=== PATIENT | male | born 1940 | race Caucasian/White ===

== ENCOUNTER → 2021-07-02 11:20 | Outpatient (CLI) | payer MEDICARE, SELFPAY ==
--- NOTE | ~2021-07-02 | XR_ITS ---
EXAMINATION: XR lumbar spine 2-3V EXAM DATE: 07/02/2021 11:47 INDICATION: M54.5 - Low back pain/worsening/no trauma. TECHNIQUE: Lumber spine frontal, lateral, lateral L5-S1 projections for interpretation. There is no prior study for comparison. FINDINGS: Moderate to severe lumbar disc disease. Mild upper lumbar levoscoliosis. Small to moderate- sized endplate osteophytes. Moderate aortic arteriosclerosis. Moderate lumbar facet arthropathy. The vertebral bodies are aligned in the AP dimension. Vertebral body heights are maintained. Sacrum, sacr oiliac joints, sacral arcuate lines are intact. Paraspinal soft tissue is unremarkable. IMPRESSION: 1. Moderate to severe lumbar disc disease. 2. Moderate arthropathy. Reviewed, dictated and finalized at location B.
--- NOTE | ~2021-07-02 | XR_ITS ---
EXAMINATION: XR hip BI wo pelvis EXAM DATE: 07/02/2021 11:49 INDICATION: M25.551Pain in right hip/states pain in both hips x3 months. TECHNIQUE: Each hip imaged independently (separate right and also left hip) 'frog leg' and frontal p rojections for interpretation. Frontal projection pelvis. There is no prior study for comparison. FINDINGS: No radiographic evidence of hip avascular necrosis. There is moderate symmetric bilateral hip primary osteoarthritis. There are no acute hip or pelvic fractures or dislocations identified. T here is no subcutaneous gas. The soft tissue is unremarkable. There are no radiopaque foreign bodi es. Scattered femoral arterial sclerosis. Calcifications in the pelvis are believed to be phlebolith s. Moderate to severe lower lumbar disc disease. IMPRESSION: Moderate bilateral hip osteoarthritis. Reviewed, dictated and finalized at location B.
== END ==
PROVIDERS: PCP Nurse Practitioner Family; Visit Provider Nurse Practitioner Family
DX: M16.0 Bilateral primary osteoarthritis of hip (principal); M51.36 Other intervertebral disc degeneration, lumbar region
CPT/HCPCS: 72100; 73521

== ENCOUNTER → 2022-12-30 08:33 | Outpatient (CLI) | payer MEDICARE, SELFPAY ==
--- NOTE | ~2022-12-30 | XR_ITS ---
XR lumbar spine min 4V DATE: 12/30/2022 09:04 INDICATION: Lumbago, sciatica TECHNIQUE: AP, lateral, bilateral oblique views, coned lateral lumbosacral view COMPARISON: 07/02/2021 lumbar spine FINDINGS: Normal alignment of the lumbar spine. There is mild rotatory lumbar levoscoliosis. There is moderately severe degenerative disc disease at L1-2 and L3-4 and severe degenerative disc di sease at L2-3, L4-5 and L5-S1. No fracture or bone destruction is evident. The lumbar pedicles appear intact. No spondylolisthesis. The sacroiliac joints are normally aligned. There is extensive calcification of the abdominal aorta and common iliac arteries, without evidence o f aneurysm. Status post cholecystectomy IMPRESSION: Mild rotatory levoscoliosis Moderately severe to severe degenerative disease throughout the lumbar spine Reviewed, dictated and finalized at location A.
--- NOTE | ~2022-12-30 | XR_ITS ---
EXAMINATION: XR hip BI 2V w AP pelvis DATE: 12/30/2022 09:05 INDICATION: Right hip pain. TECHNIQUE: An anteroposterior view of the pelvis on 2 radiographs and 2 views of each hip were obtain ed. COMPARISON: Pelvis and hip radiographs 07/02/2021 FINDINGS: Bone alignment is normal. No fracture. There is severe lumbar spondylosis. There is mild os teoarthrosis of the hips. IMPRESSION: 1. Mild osteoarthritis of the hips. Reviewed, dictated and finalized at location A.
== END ==
PROVIDERS: PCP Nurse Practitioner Family; Visit Provider Nurse Practitioner Family
DX: M54.40 Lumbago with sciatica, unspecified side (principal); M51.36 Other intervertebral disc degeneration, lumbar region; M41.86 Other forms of scoliosis, lumbar region; M16.0 Bilateral primary osteoarthritis of hip
CPT/HCPCS: 72110; 73521

== ENCOUNTER 2023-02-03 08:15 | Outpatient (RCR) | payer MEDICARE, SELFPAY ==
--- NOTE | 2023-01-07 09:04 | PTOPEVAL1 ---
Assessment and note entered by Claire Mensees, PT Evaluation Information Assessment Status Evaluation Diagnosis low back pain, R and L hip pain Onset about 1 yr ago Subjective Information gradual increase in back pain, no trauma or injury recent xrays of hips and back- per pt: hips mild to moderate arthritis and back severe arthritis; do not use assistive device; decrease activity level due to pain--standing, walking, home tasks; have not had PT for his back before; Reported Pain Level Pain Score Self Report Additional Pain Score Comments pain range 4-10/10, excruciating pain; into R and L to lateral hips and thighs to knees- intermittent; R and L foot tingling--neuropathy since back surgery; increase pain with walking & standing 5 min, sleeping depends upon activity level decrease pain - take ibuprofen, lie down, heat does not really make difference; have not used muscle creams; just bought back brace- only used once; discussed with pt balance of activity/rest, increase activity as tolerated; Assessment PT Clinical Summary Jareth has the diagnosis of low back pain, radicular into R and L LE to knees. Oswestry score of 54% limitation in activity level. He reports decreased walking, standing and activity level due to pain. With the evaluation, he has poor standing position of his trunk with R forward rotation of shoulder and trunk; decreased walking distance with 2 minute walking test of 300' and stopped due to pain increase; decreased strength of trunk and hips, with decreased flexibility of both hamstrings. Skilled PT services are indicated for modalities to decrease pain; therapeutic exercises to increase trunk and hip strength, and education for home exercises, posture and pain control. Plan of Care Interventions Electrical Stimulation,Hot Pack/Cold Pack,Manual Therapy,Mechanical Traction,Patient/Caregiver Education,Therapeutic Activities,Therapeutic Exercise,Ultrasound,Other Other Interventions taping PT Services Indicated Yes Treatment Frequency and
--- NOTE | 2023-02-11 13:02 | PTOPDC ---
Assessment and note entered by Claire Meneses, PT Evaluation Information Assessment Status Discharge - Pt Not Present Diagnosis low back pain, R and L hip pain Onset about 1 yr ago Assessment PT Clinical Summary Mr. Fernandes has received 5 PT sessions. He called and canceled remaining appointments, stated he would continue with his exercises and go to the fitness center. The goals were not assessed. Discharge PT per pt request. Plan of Care PT Services Indicated Yes
== END 2023-02-12 09:13 | disposition home or self-care (01) ==
LOC: ANHPT 08:15
PROVIDERS: PCP Nurse Practitioner Family; Visit Provider Nurse Practitioner Family
DX: M54.40 Lumbago with sciatica, unspecified side (principal); M25.551 Pain in right hip; M25.552 Pain in left hip
CPT/HCPCS: 97014; 97110; 97112; 97140; 97161; 97530; G0283

== ENCOUNTER → 2023-02-22 10:36 | Outpatient (CLI) | payer MEDICARE, SELFPAY ==
--- NOTE | ~2023-02-22 | XR_ITS ---
XR chest 2V 02/22/2023 10:58 Indication: Acute bronchitis. Procedure: 2 view chest Comparison: No prior studies for comparison. Findings: Left lower lobe airspace disease. Small left effusion. Borderline heart size. Right lung cl ear. No edema or pneumothorax. No acute osseous abnormality. Impression: 1: Left basilar airspace disease may represent atelectasis or pneumonia. 2: Small left pleural effusion. Reviewed, dictated and finalized at location [] Impression: 1: Left basilar airspace disease may represent atelectasis or pneumonia. 2: Small left pleural effusion.
== END ==
PROVIDERS: PCP Family Medicine; Visit Provider Family Medicine
DX: J20.9 Acute bronchitis, unspecified (principal); J90 Pleural effusion, not elsewhere classified
CPT/HCPCS: 71046

== ENCOUNTER 2023-06-15 08:51 | Outpatient (CLI) | payer MEDICARE, SELFPAY | END 2023-06-15 08:52 | disposition home or self-care (01) | LOC: ANHAUDASC 08:51 | PROVIDERS: PCP Nurse Practitioner Family; Visit Provider Otolaryngology | DX: H93.19 Tinnitus, unspecified ear (principal); H90.3 Sensorineural hearing loss, bilateral | CPT/HCPCS: 92557; 92567 ==

== ENCOUNTER → 2023-09-07 09:16 | Outpatient (CLI) | payer MEDICARE, SELFPAY ==
--- NOTE | ~2023-09-07 | MR_ITS ---
MRI of the lumbar spine Clinical History: Back pain Technique: Axial T2-weighted images, and sagittal T1-weighted, T2-weighted, and T2 fat-sat images wer e acquired. Findings: There is no fracture or subluxation of the lumbar spine. Vertebral bodies maintain normal h eight and line. There are areas of reactive marrow signal changes due to degenerative disc disease. N o suspicious bone marrow signal abnormality seen. At L1-L2, there is advanced degenerative disc narrowing. Disc bulge and moderate facet arthropathy re sults in moderate to advanced central canal stenosis. There is severe right neural foraminal narrowin g, and moderate to advanced left neural foraminal narrowing. At L2-L3, there is severe degenerative disc narrowing. Disc bulge and severe facet arthropathy contri bute to moderate central canal stenosis/thecal sac compression. There is moderate to severe right linden ral foraminal narrowing, and moderate left neural foraminal narrowing. At L3-L4, there is advanced degenerative disc narrowing. Disc bulge and advanced facet arthropathy re sult in moderate central canal stenosis/thecal sac compression. There is moderate to severe bilateral neural foraminal narrowing, left worse than right. At L4-L5, there is severe degenerative disc narrowing. Diffuse disc bulge and advanced facet arthropa thy are present, with left lateral recess stenosis. There is severe left neural foraminal, right, and moderate right neural foraminal conference. At L5-S1, there is advanced degenerative disc narrowing, with diffuse disc bulge. No laurence central ca nal stenosis. There is moderate bilateral neural foraminal narrowing, right worse than left. Paravertebral soft tissues are unremarkable. Impression: Severe degenerative spondylosis, as detailed above. Reviewed, dictated and finalized at location M. PREVENTION LEAD Impression: Severe degenerative spondylosis, as detailed above.
== END ==
PROVIDERS: PCP Nurse Practitioner Family; Visit Provider Anesthesiology Pain Medicine
DX: M47.896 Other spondylosis, lumbar region (principal)
CPT/HCPCS: 72148

== ENCOUNTER 2023-10-12 06:51 | Day surgery (SDC) | payer MEDICARE, SELFPAY ==
[2023-09-13 09:25] VITALS: BMI 24.8
--- NOTE | ~2023-10-12 | XR_ITS ---
EXAMINATION: XR fluoroscopy no charge DATE: 10/12/2023 10:55 INDICATION: Bilateral L3-L5 nerve blocks TECHNIQUE: 12 fluoroscopic images of the lower lumbar spine were obtained during procedure performed by Dr. Schilling. Radiologist was not present for the imaging or procedure. The amount of fluoroscopy time used during this procedure was 0.3 minutes. COMPARISON: None. FINDINGS: Images demonstrate needles advanced to the region of the junction of the superior facet and transvers e processes of L4-S1 on both the left and right. IMPRESSION: 1. Fluoroscopy utilized during pain management procedure the lower lumbar spine. See procedure note f or further detail. Reviewed, dictated and finalized at location A. EMS ANALYST DEVELOPER IMPRESSION: 1. Fluoroscopy utilized during pain management procedure the lower lumbar spine . See procedure note for further detail.
--- NOTE | 2023-10-12 08:08 | WPDHPUPDATE1 ---
History and Physical Update Update Date/Time: 10/12/23 08:08 History and Physical has been reviewed, including an updated exam of the patient. There are NO changes in the patient's condition. Risks, benefits, and alternatives have been discussed and questions answered. Patient agrees to proceed with procedure.
--- NOTE | 2023-10-12 08:09 | W.PM.PROC2 ---
Procedure Note - Detailed Date of Procedure 10/12/23 Pre-op Diagnosis Lumbosacral spondylosis, Chronic low back pain Post-op Diagnosis Same Procedure Performed Diagnostic [Right Left] Lumbar Medial Branch[/Dorsal Ramus] Blocks at [L3, L4, L5] Treating the Ipsilateral [L4-5, L5-S1] Facet Joints Under Fluoroscopic Guidance and with Contrast Control. ([2] levels blocked). Surgeon Maxx Schilling MD Anesthesia Local Description of Procedure INFORMED CONSENT: Risks, benefits and alternatives to the procedure were discussed in detail with the patient who expressed explicit understanding and consent to proceed. Patient was informed verbally and in written form regarding the risks associated with the procedure including the low risk of serious infection, bleeding/bruising, allergic reaction, nerve or organ injury, paralysis, procedural site pain or discomfort, worsening pain and/or mobility, failure to treat and/or disfigurement. The patient expressed explicit understanding and consent to proceed. All materials required for the procedure were available prior to procedure start. Site and side were marked prior to procedure and confirmed in the presence of the patient. PROCEDURE IN DETAIL: The patient was brought to the procedural suite and placed in the prone position. Patient was made comfortable with use of pillows under the head/chest, hips and ankles. Skin overlying the injection site on the affected side(s) was prepared broadly with ChloraPrep applicator and draped in a sterile manner. Aseptic technique was used throughout. The endplates of the vertebral bodies at the site(s) of interest were aligned in the AP view. Ipsilateral oblique angulation was utilized to optimize visualization of the intersection between the superior articulating process and transverse process at each target site. Local anesthesia was established by infiltration with approximately 5 mL of 1% lidocaine via a 1-1/2 inch 27-gauge needle. A 25-gauge 3.5 inch Quincke spinal needle was advanced until the needle tip contacted periosteum at the target site, right L3. Lateral view was utilized to confirm the appropriate placement of the needle tip just anterior to the facet line and superior to the pedicle. In the Lateral view, 0.25 mL of Omnipaque 300 contrast medium was injected after negative aspiration for CSF, blood or other bodily fluid, showing appropriate extra-articular spread of contrast without evidence of intravascular, foraminal or intrathecal placement. A 0.5 mL solution of 0.5% PF bupivacaine was injected after negative repeat aspiration. Appropriate spread of the injectate was confirmed with washout of previously injected contrast. No parasthesias were elicited. Needle was removed completely intact without difficulty. The same exact procedure was repeated for all remaining levels on the ipsilateral side, right L4, L5 medial branches/dorsal ramus, modified as necessary to accommodate for the new target location with identical findings and results and no evidence of complication. The same exact procedure was repeated for all remaining levels on the contralateral side, left L3, L4, L5 medial branches/dorsal ramus, modified as necessary to accommodate for the new target location with identical findings and results and no evidence of complication. Images were saved and documented in the patient chart. Patient's skin was cleaned and sterile bandage applied. The patient tolerated the procedure well. The patient was transported to the recovery area in stable condition where they were observed for an appropriate amount of time prior to discharge, without evidence of complication. Patient was instructed on the appropriate completion of a pain diary over the next 12-24 hours. The patient was instructed to avoid excessive activity for the next 48 hours, including climbing and frequent use of stairs. Showers only for 48 hours. They were instructed not to drive or operate heavy machinery for 24 hour
[2023-10-12 08:12] VITALS: BP 145/88; PULSE 82; RESP 20; TEMP 36.9; O2SAT 100
[2023-10-12 08:51] VITALS: BP 179/100; PULSE 83; RESP 13; O2SAT 98
[2023-10-12] MEDS: LIDOCAINE HCL 1% PF INJ 5 ML VIAL XX (08:55)
[2023-10-12 08:56] VITALS: BP 158/92; PULSE 75; RESP 14; O2SAT 98
[2023-10-12] MEDS: BUPivacaine HCL 0.5% 10 ML AMP INFILTRATE (08:56)
[2023-10-12 09:05] VITALS: BP 135/81; PULSE 82; RESP 16; O2SAT 100
== END 2023-10-12 09:15 | disposition home or self-care (01) ==
PROVIDERS: PCP Nurse Practitioner Family; Visit Provider Anesthesiology Pain Medicine
PROC: (CPT 64493; principal; 2023-10-12 08:45)
DX: M47.817 Spondylosis without myelopathy or radiculopathy, lumbosacral region (principal); M54.59 Other low back pain
CPT/HCPCS: 64493 ×2; 64494 ×2; 99199

== ENCOUNTER 2023-11-09 05:53 | Day surgery (SDC) | payer MEDICARE, SELFPAY ==
[2023-10-29 10:22] VITALS: BMI 25.4
--- NOTE | ~2023-11-09 | XR_ITS ---
EXAMINATION: XR fluoroscopy no charge DATE: 11/09/2023 13:12 INDICATION: Pain management procedure the lumbar spine TECHNIQUE: 11 fluoroscopic images of the lumbar spine were obtained during procedure performed by Dr. Schilling. Radiologist was not present for the imaging or procedure. The amount of fluoroscopy time used during this procedure was 2.3 minutes. COMPARISON: None. FINDINGS/IMPRESSION: Images demonstrate spinal needles with distal tips projecting along the superolateral margin of the j unction of the pedicles and transverse processes bilaterally at the level of the L3, L4 and L5 dorsal rami. See procedure note for further detail. Reviewed, dictated and finalized at location A. R WORKER
[2023-11-09 06:51] VITALS: BP 144/93; PULSE 63; RESP 14; TEMP 36.8; O2SAT 100
--- NOTE | 2023-11-09 07:10 | WPDHPUPDATE1 ---
History and Physical Update Update Date/Time: 11/09/23 07:10 History and Physical has been reviewed, including an updated exam of the patient. There are NO changes in the patient's condition. Risks, benefits, and alternatives have been discussed and questions answered. Patient agrees to proceed with procedure.
--- NOTE | 2023-11-09 07:10 | W.PM.PROC2 ---
Procedure Note - Detailed Date of Procedure 11/09/23 Pre-op Diagnosis Lumbosacral spondylosis, chronic low back pain Post-op Diagnosis Same Procedure Performed bilateral L3, L4, L5 medial branch/ dorsal ramus nerve blocks (# 2) addressing the bilateral L4-5, L5-S1 facet joints under fluoroscopic guidance with contrast control. Surgeon Maxx Schilling MD Anesthesia Local Description of Procedure INFORMED CONSENT: Risks, benefits and alternatives to the procedure were discussed in detail with the patient who expressed explicit understanding and consent to proceed. Patient was informed verbally and in written form regarding the risks associated with the procedure including the low risk of serious infection, bleeding/bruising, allergic reaction, nerve or organ injury, paralysis, procedural site pain or discomfort, worsening pain and/or mobility, failure to treat and/or disfigurement. The patient expressed explicit understanding and consent to proceed. All materials required for the procedure were available prior to procedure start. Site and side were marked prior to procedure and confirmed in the presence of the patient. PROCEDURE IN DETAIL: The patient was brought to the procedural suite and placed in the prone position. Patient was made comfortable with use of pillows under the head/chest, hips and ankles. Skin overlying the injection site on the affected side(s) was prepared broadly with ChloraPrep applicator and draped in a sterile manner. Aseptic technique was used throughout. The endplates of the vertebral bodies at the site(s) of interest were aligned in the AP view. Ipsilateral oblique angulation was utilized to optimize visualization of the intersection between the superior articulating process and transverse process at each target site. Local anesthesia was established by infiltration with approximately 5 mL of 1% lidocaine via a 1-1/2 inch 27-gauge needle. A 25-gauge 3.5 inch Quincke spinal needle was advanced until the needle tip contacted periosteum at the target site, right L3. Lateral view was utilized to confirm the appropriate placement of the needle tip just anterior to the facet line and superior to the pedicle. In the Lateral view, 0.25 mL of Omnipaque 300 contrast medium was injected after negative aspiration for CSF, blood or other bodily fluid, showing appropriate extra-articular spread of contrast without evidence of intravascular, foraminal or intrathecal placement. A 0.5 mL solution of 2.0% PF lidocaine was injected after negative repeat aspiration. Appropriate spread of the injectate was confirmed with washout of previously injected contrast. No parasthesias were elicited. Needle was removed completely intact without difficulty. The same exact procedure was repeated for all remaining levels on the ipsilateral side, right L4, L5 medial branches/dorsal ramus, modified as necessary to accommodate for the new target location with identical findings and results and no evidence of complication. The same exact procedure was repeated for all remaining levels on the contralateral side, left L3, L4, L5 medial branches/dorsal ramus, modified as necessary to accommodate for the new target location with identical findings and results and no evidence of complication. Images were saved and documented in the patient chart. Patient's skin was cleaned and sterile bandage applied. The patient tolerated the procedure well. The patient was transported to the recovery area in stable condition where they were observed for an appropriate amount of time prior to discharge, without evidence of complication. Patient was instructed on the appropriate completion of a pain diary over the next 12-24 hours. The patient was instructed to avoid excessive activity for the next 48 hours, including climbing and frequent use of stairs. Showers only for 48 hours. They were instructed not to drive or operate heavy machinery for 24 hours. They are to monitor for severe headac
[2023-11-09 07:30] VITALS: BP 181/80; PULSE 77; RESP 13; O2SAT 96
[2023-11-09 07:40] VITALS: BP 191/88; PULSE 83; RESP 10; O2SAT 98
[2023-11-09] MEDS: LIDOCAINE HCL 1% PF INJ 5 ML VIAL 2 ML INFILTRATE (07:47)
[2023-11-09] MEDS: LIDOCAINE HCL 2% PF INJ 5 ML VIAL INFILTRATE (07:47)
[2023-11-09 07:51] VITALS: BP 143/69; PULSE 75; RESP 13; O2SAT 95
[2023-11-09 07:52] VITALS: BP 129/70; PULSE 77; RESP 18; O2SAT 99
== END 2023-11-09 08:12 | disposition home or self-care (01) ==
PROVIDERS: PCP Nurse Practitioner Family; Visit Provider Anesthesiology Pain Medicine
PROC: (CPT 64493; principal; 2023-11-09 07:30)
DX: M47.817 Spondylosis without myelopathy or radiculopathy, lumbosacral region (principal); M54.59 Other low back pain
CPT/HCPCS: 64493; 64494; 99199

== ENCOUNTER 2024-01-04 05:50 | Day surgery (SDC) | payer MEDICARE, SELFPAY ==
[2023-12-22 13:52] VITALS: BMI 26.5
--- NOTE | ~2024-01-04 | XR_ITS ---
XR fluoroscopy no charge Indication: Bilateral L3, L4 and L5 medial branch nerve block TECHNIQUE: Fluoroscopy used during Bilateral L3, L4 and L5 medial branch nerve block performed by Dr Soni [Maxx Schilling MD] on 01/04/2024. 17 seconds of fluoroscopy time with 10 fluoroscopic images capt ured. FINDINGS: Correlate with procedure note. IMPRESSION: Fluoroscopy used during Bilateral L3, L4 and L5 medial branch nerve block. Please refer t o procedural note. Reviewed, dictated and finalized at location B. IMPRESSION: Fluoroscopy used during Bilateral L3, L4 and L5 medial branch nerve block. Please refer to procedural note.
--- NOTE | 2024-01-04 06:22 | PM.HPGS ---
History of Present Illness History of Present Illness Consent: Risks, benefits, and alternatives have been discussed and questions answered. Patient agrees to proceed with procedure. Chief complaint: Lumbosacral spondylosis, chronic low back pain Narrative: Maxx Fernandes is a 83 year old male with chronic, recalcitrant and disabling bilateral lumbosacral back pain secondary to degenerative spondylosis with failure to respond to aggressive conservative measures including PT, oral and topical analgesics, opioid and nonopioid analgesics, rest, time and activity/behavioral modification over the past 1-2 years who presents for thermal radiofrequency ablation of the bilateral L3, L4, L5 medial branches/dorsal rami under fluoroscopic guidance. Review of Systems Review of Systems: Patient denies any new infectious, allergic, cardiopulmonary, neurologic or constitutional symptoms or changes in activity tolerance or exercise capacity including new or progressive SOB/ALMENDAREZ, peripheral edema, productive cough, dysuria, nausea/vomiting, diarrhea, weight change, fevers/chills/night sweats, new or progressive neurologic deficit, cognitive or mood changes since last seen, except as documented in the HPI. All systems reviewed & are unremarkable except as noted in HPI and below PMFSH Past Medical History Medical History Acute bronchitis Acute pharyngitis Afib Arthritis, lumbar spine B12 deficiency Bilateral hip pain BMI 26.0-26.9,adult BMI 27.0-27.9,adult Buttock pain Claudication Cerumen impaction Dizziness Elevated fasting glucose Encounter to establish care Erectile dysfunction Frontal headache Hearing loss History of carotid stenosis carotid Doppler study 11/25/2023 with less than 50% stenosis bilaterally. Followed by vascular surgeon. HTN (hypertension) Hypothyroidism Lumbago Lumbago with sciatica Mixed hyperlipidemia Muscle strain Nocturia Peripheral arterial disease or to Doppler 06/24/2023 with ABNER 0.59 on the right and 0.54 on the left followed by vascular surgeon. Tinnitus Vertigo Surgical History Surgical History History of lumbar surgery Hx of cholecystectomy Family History Family History Sibling Cancer Sibling Diabetes mellitus Social History Social History Social History: Caffeine-tea daily Smoking status: Former smoker Tobacco type: cigarettes Second hand tobacco smoke exposure: Yes Smoking end date: 09/06/98 Alcohol intake: former Substance use: unknown Substance use type: does not use Lack of Transportation: No Lack of Food: Never True Current Housing: I Have Housing Concerned About Future Housing: No Difficulty Paying Gas/Electric Bills: No Difficulty Paying for Meds: No Currently Unemployed: YES Education: Master's Degree or Higher Difficulty w/ Childcare or Family Care: No Living arrangements: with family Additional living arrangements comments: with Occupation/Education: retired Gender identity (if verbalized by the patient): Male Spiritual care concerns: No Meds Home Medications and Allergies Home Medications Medication Instructions Recorded Confirmed Type aspirin 81 mg tablet,delayed 81 mg PO DAILY 05/14/21 12/22/23 History release multivitamin 1 tablet PO DAILY 05/14/21 12/22/23 History meclizine 25 mg tablet 25 mg PO TID PRN dizziness #270 12/30/22 12/22/23 Rx tabs levothyroxine 125 mcg tablet 125 mcg PO DAILY #90 tabs 04/19/23 12/22/23 Rx metoprolol succinate 25 mg 25 mg PO DAILY #90 tabs 04/19/23 12/22/23 Rx tablet,extended release 24 hr amlodipine 10 mg tablet 10 mg PO DAILY #90 tabs 05/17/23 12/22/23 Rx atorvastatin 10 mg tablet 10 mg PO DAILY #90 tabs 05/17/23 12/22/23 Rx lisinopril 40 mg tablet 20 mg
--- NOTE | 2024-01-04 06:26 | WPDHPUPDATE1 ---
History and Physical Update Update Date/Time: 01/04/24 06:26 History and Physical has been reviewed, including an updated exam of the patient. There are NO changes in the patient's condition. Risks, benefits, and alternatives have been discussed and questions answered. Patient agrees to proceed with procedure.
--- NOTE | 2024-01-04 06:26 | W.PM.PROC2 ---
Procedure Note - Detailed Date of Procedure 01/04/24 Pre-op Diagnosis Lumbosacral spondylosis, chronic low back pain Post-op Diagnosis Same Procedure Performed Thermal Radiofrequency Ablation of the Bilateral Lumbar Medial Branches/Dorsal Ramus at L3, L4, L5 Levels Treating the Ipsilateral L4-5, L5-S1 Facet Joints Under Fluoroscopic Guidance (4 Levels Treated). Surgeon Maxx Schilling MD Anesthesia MAC and Local Description of Procedure INFORMED CONSENT: Risks, benefits and alternatives to the procedure were discussed in detail with the patient who expressed explicit understanding and consent to proceed. Patient was informed verbally and in written form regarding the risks associated with the procedure including the low risk of serious infection, bleeding/bruising, allergic reaction, nerve or organ injury, paralysis, procedural site pain or discomfort, worsening pain and/or mobility, failure to treat and/or disfigurement. The patient expressed explicit understanding and consent to proceed. All materials required for the procedure were available prior to procedure start. Site and side were marked prior to procedure and confirmed in the presence of the patient. PROCEDURE IN DETAIL: The patient was brought to the procedural suite and placed in the prone position. Patient was made comfortable with use of pillows under the head/chest, hips and ankles. Skin overlying the injection site on the affected side(s) was prepared broadly with ChloraPrep applicator and draped in a sterile manner. Aseptic technique was used throughout. The endplates of the vertebral bodies at the site(s) of interest were aligned in the AP view. Ipsilateral oblique angulation was utilized to optimize visualization of the intersection between the superior articulating process and transverse process at each target site. Local anesthesia was established by infiltration with approximately 5 mL of 1% lidocaine via a 1-1/2 inch 27-gauge needle. An 16-gauge 100mm Actifiian RF needle with curved 10mm active tip was advanced in the AP view until the needle tip contacted the periosteum at the target site, right L3 medial branch. Lateral view was utilized to adjust and confirm the appropriate placement of the needle tip just anterior to the facet line, superior to the pedicle and posterior to the foramen. The appropriately-sized RF cannula was inserted into the RF needle and motor stimulation performed with no subjective or objective evidence of recruited muscle activity with stimulation up to 3.0 volts at a frequency of 2Hz. 1.0 mL of 2.0% PF lidocaine was injected after negative aspiration. Grounding electrode in place and functioning. After a 90s pause, lesioning was performed to 90 degrees centigrade for 90s ensuring lack of symptoms in the extremity throughout. Needle was rotated 180 degrees and lesioning repeated in a similar manner. Patient tolerated this well. No parasthesias were elicited. Needle was removed completely intact without difficulty. The same procedure was repeated for all intended levels/ structures on the ipsilateral side, right L4, L5 medial branch/dorsal ramus with identical methodology, modified to compensate for new location, with similar results and no evidence of complication. The same exact procedure was repeated for all remaining levels on the contralateral side, left L3, L4, L5 medial branches/dorsal ramus, modified as necessary to accommodate for the new target location with identical findings/results and no evidence of complication. Images were saved and documented in the patient chart. Patient's skin was cleansed and sterile bandage applied. The patient tolerated the procedure well. The patient was transported to the recovery area in stable condition where they were observed for an appropriate amount of time prior to discharge, without evidence of complication. The patient was instructed to avoid excessive activity for the next 48 hours, including climbing and fr
[2024-01-04 06:30] VITALS: BP 123/77; PULSE 71; RESP 16; TEMP 36.6; O2SAT 100
[2024-01-04] MEDS: LACTATED RINGERS 1,000 ML 30 ML IV CONT (07:20)
--- NOTE | 2024-01-04 07:22 | WPDANESEPPF ---
Anes - Initial Pre Proc Eval Procedure: Operation Date: 01/04/24 07:30 Proposed Procedures p Bilateral L3, L4, L5 Medial Branch/Dorsal Ramus Nerve Thermal Radiofrequency Ablation Addressing Bilateral L4-5, L5-S1 Facet Joints under Fluoroscopic Guidance - Maxx Schilling MD Date/Time: 01/04/24 07:22 Surgeon: Maxx Schilling MD Pre Op Diagnosis: Lumbosacral spondylosis, chronic low back pain Patient Data Age: 83 Gender: M Height: 1.78 m Weight: 80.3 kg Last Vital Signs Temp 36.6 C 01/04/24 06:30 Pulse 71 01/04/24 06:30 Resp 16 01/04/24 06:30 BP 123/77 01/04/24 06:30 Pulse Ox 100 01/04/24 06:30 O2 Del Method Room Air 01/04/24 06:30 Allergies Allergy/AdvReac Type Severity Reaction Status Date / Time amitriptyline AdvReac Mild Headache Verified 01/04/24 06:26 Home Medications Medication Instructions Recorded Confirmed Type aspirin 81 mg tablet,delayed 81 mg PO DAILY 05/14/21 01/04/24 History release multivitamin 1 tablet PO DAILY 05/14/21 01/04/24 History meclizine 25 mg tablet 25 mg PO TID PRN dizziness #270 12/30/22 01/04/24 Rx tabs levothyroxine 125 mcg tablet 125 mcg PO DAILY #90 tabs 04/19/23 01/04/24 Rx metoprolol succinate 25 mg 25 mg PO DAILY #90 tabs 04/19/23 01/04/24 Rx tablet,extended release 24 hr amlodipine 10 mg tablet 10 mg PO DAILY #90 tabs 05/17/23 01/04/24 Rx atorvastatin 10 mg tablet 10 mg PO DAILY #90 tabs 05/17/23 01/04/24 Rx lisinopril 40 mg tablet 20 mg PO DAILY #90 tabs 05/17/23 01/04/24 Rx cholecalciferol (vitamin D3) 1 tablet PO DAILY 09/13/23 01/04/24 History vitamin B complex-vit B12 1 tablet PO DAILY 09/13/23 01/04/24 History tamsulosin 0.4 mg capsule 0.4 mg PO QHS #90 caps 12/16/23 01/04/24 Rx Patient hx anesthesia problems: none Family hx anesthesia problems: none Results Review: All pre-operative results and documents have been reviewed as part of the pre-operative evaluation. [facility] Past Medical History Medical History Acute bronchitis Acute pharyngitis Afib Arthritis, lumbar spine B12 deficiency Bilateral hip pain BMI 26.0-26.9,adult BMI 27.0-27.9,adult Buttock pain Claudication Cerumen impaction Dizziness Elevated fasting glucose Encounter to establish care Erectile dysfunction Frontal headache Hearing loss History of carotid stenosis carotid Doppler study 11/25/2023 with less than 50% stenosis bilaterally. Followed by vascular surgeon. HTN (hypertension) Hypothyroidism Lumbago Lumbago with sciatica Mixed hyperlipidemia Muscle strain Nocturia Peripheral arterial disease or to Doppler 06/24/2023 with ABNER 0.59 on the right and 0.54 on the left followed by vascular surgeon. Tinnitus Vertigo Surgical History Surgical History History of lumbar surgery Hx of cholecystectomy Family History Family History Sibling Cancer Sibling Diabetes mellitus Social History Social History Social History: Caffeine-tea daily Smoking status: Former smoker Tobacco type: cigarettes Second hand tobacco smoke exposure: Yes Smoking end date: 09/06/98 Alcohol intake: former Substance use: unknown Substance use type: does not use Lack of Transportation: No Lack of Food: Never True Current Housing: I Have Housing Concerned About Future Housing: No Difficulty Paying Gas/Electric Bills: No Difficulty Paying for Meds: No Currently Unemployed: YES Education: Master's Degree or Higher Difficulty w/ Childcare or Family Care: No Living arrangements: with family Additional living arrangements comments: with Occupation/Education: retired Gender identity (if verbalized by the patient): Male Spiritual care concerns: No Anes - Eval Final PreProcedure Day of Procedure 01/04/24
[2024-01-04] MEDS: LIDOCAINE HCL 2% PF INJ 5 ML VIAL INFILTRATE (07:50)
[2024-01-04] MEDS: BUPivacaine HCL 0.5% 10 ML AMP INFILTRATE (07:55)
[2024-01-04] MEDS: LIDOCAINE HCL 1% PF INJ 5 ML VIAL XX (07:56)
[2024-01-04 08:06] VITALS: BP 111/74; PULSE 72; RESP 16; O2SAT 100
--- NOTE | 2024-01-04 08:20 | WPDANESPN ---
Anes - Prog Note Post-Op Date/Time: 01/04/24 08:20 Cardiovascular status: normal Respiratory status: normal Airway patency: baseline Mental status: baseline Post-Op hydration status: normal Vital Signs: Last Vital Signs Temp 36.6 C 01/04/24 06:30 Pulse 71 01/04/24 06:30 Resp 16 01/04/24 06:30 BP 123/77 01/04/24 06:30 Pulse Ox 100 01/04/24 06:30 O2 Del Method Room Air 01/04/24 06:30 Pain Score (VAS): 0/10 I/O: Intake & Output 01/03/24 01/04/24 01/04/24 23:59 07:59 15:59 Intake Total 400 Balance 400 Patient Feedback: Patient satisfied with anesthetic care.
[2024-01-04 08:29] VITALS: BP 114/63; PULSE 58; RESP 16; O2SAT 98
--- NOTE | 2024-01-04 09:20 | SUR.PHASEII ---
PT READY TO BE DISCHARGED AT 0845. WAITED ON RIDE TO ARRIVE FOR 30 MIN. RN WITH PT.
== END 2024-01-04 09:15 | disposition home or self-care (01) ==
PROVIDERS: PCP Nurse Practitioner Family; Visit Provider Anesthesiology Pain Medicine
PROC: (CPT 64635; principal; 2024-01-04 07:30)
DX: M47.817 Spondylosis without myelopathy or radiculopathy, lumbosacral region (principal); M54.59 Other low back pain
CPT/HCPCS: 64635; 64636; 99199

== ENCOUNTER 2024-03-29 13:19 | Outpatient (CLI) | payer MEDICARE, SELFPAY ==
--- NOTE | 2024-03-29 13:31 | ECG_ITS ---
Test Date: 2024-03-29 13:39:00 Measurements Intervals [place] Rate: 65 P: 0 MA: 0 QRS: -15 QRSD: 103 T: 3 QT: 384 QTc: 400 Interpretive Statements ATRIAL FIBRILLATION CANNOT R/O SEPTAL INFARCT, AGE INDETERMINATE BORDERLINE T WAVE ABNORMALITY- INFERIOR LEADS ABNORMAL ECG No previous ECG available for comparison Electronically Signed On 03-29-2024 13:54:11 CDT by Tray Reeves D.O.
== END 2024-03-29 13:20 | disposition home or self-care (01) ==
LOC: ANHSURGERY 13:22
PROVIDERS: PCP Nurse Practitioner Family; Visit Provider Anesthesiology Pain Medicine
DX: Z01.818 Encounter for other preprocedural examination (principal); I10 Essential (primary) hypertension; R94.31 Abnormal electrocardiogram [ECG] [EKG]
CPT/HCPCS: 93005

== ENCOUNTER 2024-05-11 07:23 | Outpatient (CLI) | payer MEDICARE, SELFPAY ==
--- NOTE | ~2024-05-11 | NM_ITS ---
EXAMINATION: NM ahmet stress w perfusion DATE: 05/11/2024 10:21 INDICATION: Encounter for preprocedural cardiovascular exam TECHNIQUE: Rest images were obtained following intravenous administration of 9.2 mCi Tc99m tetrofosmi n (Myoview). The patient was infused intravenously with Lexiscan (Regadenoson). Then, 30.0 mCi Tc99m tetrofosmin (Myoview) was administered intravenously, and stress images were obtained. Data was recon structed into short axis and horizontal and vertical long axis SPECT images. Gated SPECT images were also obtained. COMPARISON: None. FINDINGS: There is no definite reversible or fixed perfusion abnormality to suggest ischemia or infar ction. There is normal left ventricular chamber size, wall motion and ejection fraction. Left ventr icular ejection fraction measures >70%. IMPRESSION: 1. Normal myocardial perfusion at rest and during stress. 2. Left ventricular ejection fraction measuring >70%. Reviewed, dictated and finalized at location A.
--- NOTE | 2024-05-11 07:34 | EST_ITS ---
Patient Info Name: Maxx Fernandes Age: 83 years : 1940 Gender: Male Ht: 70 in Wt: 178 lbs BSA: 2.01 m2 Exam Date: 05/11/2024 9:19 AM Exam Location: Echo Lab Patient Status: Outpatient Admit Date: 05/11/2024 Staff Ordering Physician: Tray Reeves DO Attending Provider: Tray Reeves DO Exercise Technologist: Lesley Rojas CT Exercise Physician: Tray Reeves DO Exam Type: CA stress ahmet w NM Study Info Indications Z01.810 - Encounter for preprocedural cardiovascular examination A regadenoson stress test was performed. Summary 1. 1. Negative lexiscan stress test for ischemic ST changes by ECG criteria. 2. 2. Baseline hypertension. 3. 3. Nuclear scan to follow and will be reported separately. Please correlate with it. 4. 4. Patient informed of the above results. Protocol: Lexiscan Stress ECG Details Stage: REST Duration (min): 2 min : 24 sec HR (bpm): 68 SBP (mmHg): 169 DBP (mmHg): 94 Stage: REST Duration (min): 7 min : 31 sec HR (bpm): 74 SBP (mmHg): 169 DBP (mmHg): 94 Stage: STAGE 1 Duration (min): 0 min : 59 sec HR (bpm): 89 SBP (mmHg): 183 DBP (mmHg): 90 Stage: RECOVERY Duration (min): 1 min : 0 sec HR (bpm): 81 SBP (mmHg): 183 DBP (mmHg): 90 Stage: RECOVERY Duration (min): 2 min : 0 sec HR (bpm): 66 SBP (mmHg): 183 DBP (mmHg): 90 Stage: RECOVERY Duration (min): 3 min : 0 sec HR (bpm): 74 SBP (mmHg): 183 DBP (mmHg): 90 Stage: RECOVERY Duration (min): 3 min : 19 sec HR (bpm): 73 SBP (mmHg): 160 DBP (mmHg): 80 Rest HR: 74 bpm Peak HR: 93 bpm Rest Sys BP: 169 mmHg Peak Sys BP: 183 mmHg Max Pred HR: 136 bpm % Max Pred HR: 68 % Target HR: 116 bpm Max RPP: 17,019 bpm*mmHg Termination Reason: Completed protocol Cardiac Symptoms: Shortness of breath Total Time: 1 min : 0 sec Rest Delgado BP: 94 mmHg Peak Delgado BP: 90 mmHg Total Dose: 0.4 mg Resting ECG Atrial fibrillation. Stress ECG No ST changes. Arrhythmias No other arrhythmias. Report Signatures
== END 2024-05-11 07:24 | disposition home or self-care (01) ==
PROVIDERS: PCP Nurse Practitioner Family; Visit Provider Internal Medicine Cardiovascular Disease
DX: Z01.810 Encounter for preprocedural cardiovascular examination (principal); I10 Essential (primary) hypertension
CPT/HCPCS: 78452; 93017; A9502; J2785

== ENCOUNTER 2024-07-24 00:24 | Day surgery (SDC) | payer MEDICARE, SELFPAY ==
--- NOTE | 2024-03-29 10:01 | PC.NURSE ---
Report to the Outpatient Waiting Room, entrance under the green pavilion located off [facility], at time _8:30 AM on date __04/03/24 . Planned Procedure Time: __10:30 AM . Time changes happen often and if your time is changed the preop area will call you the afternoon before. - You and your visitor will be asked to self-screen and do not enter if you have any COVID symptoms. - A mask is optional within the hospital at this time. NOTHING TO EAT OR DRINK AFTER MIDNIGHT PER DR CORTEZ Take the following medications with a SIP of water the morning of surgery: ___AMLODIPINE,LEVOTHYROXINE,METOPROLOL DO NOT STOP ANY OF YOUR OTHER PRESCRIPTION MEDICATIONS PRIOR TO SURGERY ?EXCEPT THE FOLLOWING Medications to discontinue per physician ___PT STATES HOLD ASPIRIN 7 DAYS PRE OP PER DR CORTEZ.LAST DOSE 03/26/24. HOLD ALL VITAMINS AND SUPPLEMENTS 3 DAYS PRE OP .LAST DOSE 03/30/24 TAKE SHOWER/BATH NIGHT BEFORE SURGERY AND MORNING OF SURGERY Please no make-up, nail romanian, hairspray, perfume, deodorant, or body powder the day of surgery. No jewelry (including any body piercings) or valuables the day of surgery, leave them at home. Wear comfortable, loose fitting clothing. Children are encouraged to wear pajamas. - Jewelry must be removed prior to entering the operating room. Rings and piercings that are not removed may be cut off. - The hospital will not accept responsibility for valuables. - Please leave all valuables, including medications, at home the day of surgery. If you are going home after surgery, a licensed sheet pile driver operator must drive you home. - NO public transportation without another adult if you receive anesthesia. - We recommend that an adult stay with you for 24 hours following discharge. - We also recommend that you do not drive, make important decision, drink alcoholic beverages, or take any drugs that were not prescribed by your health care provider for at least 24 hours after your discharge time. For Pediatric surgeries, we recommend two adults accompany the child home. Follow any additional instructions given to you from your surgeon. If you or anyone in your household have experienced Covid symptoms in the past week, please notify your surgeon or the nurse liaison at the phone number below for possible testing. Telephone instructions given to __PATIENT and asked if any additional questions and then verbalized understanding. Patient advised to call surgeon office or pre surgery nurse liaison [phone] if any additional questions.
[2024-03-29 10:12] VITALS: BMI 25.5
--- NOTE | 2024-07-07 14:48 | PC.NURSE ---
Report to the Outpatient Waiting Room, entrance under the green pavilion located off [facility], at time _8 AM on date . Planned Procedure Time: _10 AM .? Time changes happen often and if your time is changed the preop area will call you the afternoon before. - You and your visitor will be asked to self-screen and do not enter if you have any COVID symptoms. Please call surgeon if you need to reschedule. - A mask is optional within the hospital at this time. NOTHING TO EAT OR DRINK AFTER MIDNIGHT PER DR CORTEZ Take only the following medications with a SIP of water on the morning of surgery: AMLODIPINE,LEVOTHYROXINE,METOPROLOL DO NOT STOP ANY OF YOUR OTHER PRESCRIPTION MEDICATIONS PRIOR TO SURGERY EXCEPT THE FOLLOWING Medications to discontinue per physician __PT TO CALL DR SANCHEZ REGARDING XARELTO.HOLD ALL VITAMINS AND SUPPLEMENTS 3 DAYS PRE O P.LAST DOSE 07/20/24 TAKE SHOWER/BATH NIGHT BEFORE AND MORNING OF SURGERY PER DR CORTEZ Please no make-up, nail malawian, hairspray, perfume, deodorant, or body powder the day of surgery.? No jewelry (including any body piercings) or valuables the day of surgery, leave them at home.? Please take a shower or bath the night before, or the morning of, surgery with an antibacterial soap.? Wear comfortable, loose fitting clothing.? Children are encouraged to wear pajamas. - Jewelry must be removed prior to entering the operating room.? Rings and piercings that are not removed may be cut off. - The hospital will not accept responsibility for valuables.? - Please leave all valuables, including medications, at home the day of surgery. If you are going home after surgery, a licensed transporter driver must drive you home.? - NO public transportation without another adult if you receive anesthesia. - We recommend that an adult stay with you for 24 hours following discharge. - We also recommend that you do not drive, make important decision, drink alcoholic beverages, or take any drugs that were not prescribed by your health care provider for at least 24 hours after your discharge time. For Pediatric surgeries, we recommend two adults accompany the child home. Follow any additional instructions given to you from your surgeon. Telephone instructions given to __PATIENT and asked if any additional questions and then verbalized understanding. Patient advised to call surgeon office or pre surgery nurse liaison [phone] if any additional questions.
[2024-07-07 14:59] VITALS: BMI 25.5
--- NOTE | 2024-07-07 15:01 | PC.NURSE ---
PT STATES NO CHANGE IN HEALTH HX SINCE LAST INTERVIEW 03/29/24 EXCEPT HAD STRESS TEST 05/11/24
[2024-07-24] VITALS (7 sets, daily range): BP systolic 111–158; BP diastolic 51–81; PULSE 57–92; RESP 12–20; TEMP 36.1–36.4; O2SAT 95–100
--- NOTE | ~2024-07-24 | XR_ITS ---
INTRAOPERATIVE FLUOROSCOPY: CLINICAL HISTORY: 83 years old Male; BILATERAL L3-4, L4-5 MINIMALLY INVASIVE LUMBAR DECOMPRESSION PROCEDURE COMMENTS: Limited intraoperative fluoroscopy of the lumbar spine was performed. CUMULATIVE DOSE: 36.7 mGy FLUOROSCOPY TIME: 264 seconds FINDINGS/IMPRESSION: Please refer to operative note for further details. Reviewed, dictated and finalized at location A. STRIAL ENGINEERING PROFESSOR
--- NOTE | 2024-07-24 06:20 | PM.HPGS ---
History of Present Illness History of Present Illness Consent: Risks, benefits, and alternatives have been discussed and questions answered. Patient agrees to proceed with procedure. 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 Review of Systems Review of Systems: Patient denies any new infectious, allergic, cardiopulmonary, neurologic or constitutional symptoms or changes in activity tolerance or exercise capacity including new or progressive SOB/ALMENDAREZ, peripheral edema, productive cough, dysuria, nausea/vomiting, diarrhea, weight change, fevers/chills/night sweats, new or progressive neurologic deficit, cognitive or mood changes since last seen, except as documented in the HPI. All systems reviewed & are unremarkable except as noted in HPI and below PMFSH Past Medical History Medical History Abnormal EKG Acute bronchitis Acute pharyngitis Afib Arthritis, lumbar spine B12 deficiency Bilateral hip pain BMI 26.0-26.9,adult BMI 27.0-27.9,adult Buttock pain Claudication Cerumen impaction Dizziness Elevated fasting glucose Encounter to establish care Erectile dysfunction Frontal headache Hearing loss History of carotid stenosis carotid Doppler study 11/25/2023 with less than 50% stenosis bilaterally. Followed by vascular surgeon. HTN (hypertension) Hypothyroidism Lumbago Lumbago with sciatica Mixed hyperlipidemia Muscle strain Nocturia Peripheral arterial disease or to Doppler 06/24/2023 with ABNER 0.59 on the right and 0.54 on the left followed by vascular surgeon. Tinnitus Vertigo Surgical History Surgical History History of lumbar surgery Hx of cholecystectomy Family History Family History Sibling Cancer Sibling Diabetes mellitus Social History Social History Social History: Caffeine-tea daily Smoking packs per day: 3 Smoking cigarettes per day: 60.0 Years smoked: 47 Smoking pack-years: 141.00 Smoking status: Former smoker Tobacco type: cigarettes Second hand tobacco smoke exposure: Yes Smoking end date: 09/06/98 Alcohol intake: former Alcohol use details: QUIT 2004 RECOVERING ALCOHOLIC Substance use: unknown Substance use type: does not use Do You Feel Safe in your Home?: Yes Lack of Transportation: No Lack of Food: Never True Current Housing: I Have Housing Concerned About Future Housing: No Difficulty Paying Gas/Electric Bills: No Difficulty Paying for Meds: No Currently Unemployed: No Education: Master's Degree or Higher Difficulty w/ Childcare or Family Care: No Living arrangements: with family Additional living arrangements comments: with Occupation/Education: retired Gender identity (if verbalized by the patient): Male Spiritual care concerns: No Meds Home Medications and Allergies Home Medications Medication Instructions Recorded Confirmed Type multivitamin 1 tablet PO DAILY 05/14/21 07/07/24 History metoprolol succinate 25 mg 25 mg PO DAILY #90 tabs 04/19/23 07/07/24 Rx tablet,extended release 24 hr lisinopril 40 mg tablet 20 mg PO DAILY #90 tabs 05/17/23 07/07/24 Rx cholecalciferol (vitamin D3) 1 tablet PO DAILY 09/13/23 07/07/24 History tamsulosin 0.4 mg capsule 0.4 mg PO QHS #90 caps 12/16/23 07/07/24 Rx cyanocobalamin (vitamin B-12) 1,000 mcg PO DAILY 03/29/24 07/07/24 History 1,000 mcg tablet levothyroxine 125 mcg tablet 125 mcg PO DAILY #90 tabs 04/10/24 07/07/24 Rx rivaroxaban 20 mg tablet (Xarelto) 20 mg PO QPM #30 tabs 04/21/24 07/07/24 Rx meclizine 25 mg tablet 25 mg PO TID PRN dizziness #270 05/01/24 07/07/24 Rx tabs amlodipine 10 mg tablet 10 mg PO DAILY #90 tabs 05/16/24 07/07/24 Rx atorvastatin 10 mg tablet 10 mg PO DAILY #90 tabs 05/16/24 07/07/24 Rx Allergies Allergy/AdvReac Type Severity Reaction Status Date / Time amitriptyline AdvReac Mild Headache Verified 07/07/24 14:43 Exam Narrative: The patient's physical exam is essentially unchanged from prior examination on 01/24/2024. Specifically, patient demonstrates normal lung capacity, tidal volume and respiratory rate without wheezes, crackles, rales or rubs. Heart rate and rhythm are regular without murmurs, gallops or rubs. No JVD. Pulses 2+ globally without increasing peripheral edema. AAOx3, NC/AT without acute distress or altered consciousness. Speech, cognition, mood and judgment at baseline and within normal limits. Const: General: no acute distress, alert, awake and Physically active Orientation/consciousness: patient oriented x3 Limitations: no limitations Assessment and Plan Assessment and plan (1) Spinal stenosis, lumbar region with neurogenic claudication: Code(s): M48.062 - Spinal stenosis, lumbar region with neurogenic claudication Status: Acute (2) Chronic pain: Code(s): G89.29 - Other chronic pain Status: Acute Plan proceed as planned with minimally invasive lumbar decompression bilaterally at L3-4, L4-5 under fluoroscopic guidance.
--- NOTE | 2024-07-24 06:24 | WPDHPUPDATE1 ---
History and Physical Update Update Date/Time: 07/24/24 06:24 History and Physical has been reviewed, including an updated exam of the patient. There are NO changes in the patient's condition. Risks, benefits, and alternatives have been discussed and questions answered. Patient agrees to proceed with procedure.
--- NOTE | 2024-07-24 06:25 | W.PM.PROC2 ---
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 Surgeon Maxx Schilling MD Staff Antisubmarine Officer None Anesthesia Other ([Moderate IV sedation/MAC] with local anesthetic infiltration in the prone position) Description of Procedure INFORMED CONSENT: Risks, benefits, and alternatives to the procedure were discussed in detail with the patient who expressed explicit understanding and consent to proceed. Risks discussed with the patient included but were not limited to risk of serious local or systemic infection, bleeding/bruising, epidural hematoma, dural puncture or tear resulting in CSF leak and acute or chronic post-dural puncture headache, scarring/deformity, immediate or delayed allergic reaction, decreased mobility, failure to treat pain, inadvertent neurologic injury resulting in increased pain, weakness/paralysis or numbness, inadvertent organ injury, need for additional surgery, allergic reaction, heart attack, stroke, seizure, coma, . Anesthetic risks were also briefly discussed by myself and the food services coordinator. The patient expressed understanding and consent to proceed, agreeing that potential benefits outweigh risk of harm. All materials required for the procedure were immediately available prior to procedure start. Site and side were confirmed with the patient, compared carefully to the patient chart and consent, and marked prior to transport to the operating room. Appropriate time out procedure was performed per protocol prior to procedure start. PROCEDURE IN DETAIL: The patient was brought to the operative suite and placed in the prone position. Appropriate ASA standard monitors were attached. Anesthesia was initiated without difficulty or event. Eyes were protected. Pressure points were padded with joints in neutral position. When appropriate, breasts and genitals were evaluated and protected. Eyes were checked and were free from undue pressure. Skin overlying the procedure site was marked with sterile marker. Surgical area was prepared in a typical sterile fashion with ChloraPrep and allowed to dry for at least 3 minutes prior to sterilely draping the surgical site. The lumbar spine was identified in the AP fluoroscopic view with slight cephalad tilt perfectly aligning the endplates at the targeted levels with spinous processes bisecting the transpedicular plane. After identifying the intended incision site approximately 1.5 levels inferior to the level of interest, the area was anesthetized by infiltration with no more than 10ml of a 1:1 admixture of 0.5% PF bupivacaine with epinephrine and 2% PF lidocaine with epinepherine via a 27-gauge needle after negative aspiration. A 22-gauge spinal needle was used to provide additional and adequate local anesthesia to the level of the interspinous ligament, ligamentum flavum and the periosteum of the lamina at the intended treatment levels. In the AP view, a #11 scalpel blade was used to create a single stab incision at the intended incision site on the targeted side. The Vertos MILD kit was opened and the included cannula and trocar assembly was advanced through the incision to contact the midportion of the right lamina just adjacent to the spinous process at L5. Once seated, the lateral view was used to gauge depth demonstrating the most anterior tip of the trocar posterior to the epidural space at all times. The deputy sheriff building guard-provided cannula stabilizer was placed over the trocar flush to the patient's lumbar flank. Cannula obturator with handle was removed. Included depth guide was then attached to the insertion port on the cannula and set to an intitial depth of 15 mm. The bone rongeur was advanced to the depth of the lumbar lamina at the targeted level. Depth gauge was then adjusted allowing rongeur tip to advance in the contralateral oblique view to the anterior border of the superior and inferior lamina at the respective intervertebral foramen. Multiple passes of the rongeur were used in the contralateral oblique view to remove single small portions of ligament and bone in a 360-degree distribution, approximately 3-5 passes on each lamina, until appropriate access to the superior and inferior attachments of the ligamentum flavum was created at the surgical level right L4-5. Each individual portion of bone removed was extracted, collected and discarded. Rongeur was removed and replaced with a tissue sculpter which was deployed from inferior to superior in the contralateral oblique view to delaminate the ligamentum flavum at the intended level with serial groupings of three passes each, 6-9 total per side treated. Tissue extracted was discarded. At no point did the rongeur or tissue sculpter violate the anterior border of the ligament as evidenced by intact interface at the ligament/epidural border. The same procedure was repeated in the exact same fashion, utilizing the initial stab incision, to effectively debulk the ligamentum flavum and decompress the central spinal canal on the right at L3-4, with similar results and no evidence of complication. The same exact procedure was then repeated in the exact same fashion, utilizing a new stab incision on the contralateral side, to effectively debulk the ligamentum flavum and decompress the central spinal canal on the left at L3-4, L4-5. Bone and tissue sculpters were withdrawn, obturator replaced and trocar removed in the lateral view, entirely and without difficulty. Hemostasis was obtained and confirmed. Benzoin was placed around the incision site(s) and Steri-Strips were placed in a purvi-crossing fashion across the wound(s), which were then covered with Telfa dressing and Tegaderm. The patient was converted to the supine position and transported to the recovery area having tolerated the procedure well with no evidence of complication. The patient was instructed to minimize weightbearing activity, including ambulation, for 48 hours, and to avoid bending, twisting at the waist, overhead work, reaching and lifting, pushing or pulling greater than 5-10 lbs for 48 hours with subsequent return to normal activity as tolerated. The patient is to maintain current dressing for 48 hours, then can remove the original dressing, leaving steri-strips in place until they come off on their own or are removed by their provider. Once removing the outer bandage, the patient will cover the incision with clean gauze and paper tape as needed, changing daily or when soiled. The patient understands they should avoid soaking or submerging the incision for 1 week and can resume showers after 48 hours. Instructions were provided to the patient in both verbal and written form, which the patient obtained, reviewed and signed prior to discharge. The patient was instructed to watch for signs of infection including fevers, chills, night sweats, severe headache, neck stiffness, new neurologic deficit, bowel or bladder changes, increased pain, discharge, bleeding, swelling, opening of or unusual warmth at the incision site. They are to call our office or report directly to the Emergency Department immediately should there be any signs/symptoms of complications such as the above or any other urgent/emergent changes in their condition. COMMENTS: None. COMPLICATIONS: None. DRAINS/PACKING: None. SPECIMEN: None. ESTIMATED BLOOD LOSS: 10 mL. IV FLUIDS: On chart. Pathology None sent Complications No immediate complications Condition Stable Disposition PACU [facility] Billing Surgery - Charge Forward: Surgery Billing
[2024-07-24] MEDS: LACTATED RINGERS 1,000 ML 30 ML IV CONT (12:00)
--- NOTE | 2024-07-24 13:09 | WPDANESEPPF ---
Anes - Initial Pre Proc Eval Procedure: Operation Date: 07/24/24 12:15 Proposed Procedures p Bilateral L3-4, L4-5 Minimally Invasive Lumbar Decompression Under Fluoroscopic Guidance With Possible Epidurogram - Maxx Schilling MD Date/Time: 07/24/24 13:09 Surgeon: Maxx Schilling MD Pre Op Diagnosis: lumbar stenosis with intermittent neurogenic elías Patient Data Age: 83 Gender: M Height: 1.78 m Weight: 79.5 kg Last Vital Signs Temp 36.4 C 07/24/24 12:23 Pulse 92 07/24/24 12:23 Resp 16 07/24/24 12:23 BP 158/81 H 07/24/24 12:23 Pulse Ox 100 07/24/24 12:23 O2 Del Method Room Air 07/24/24 12:23 Allergies Allergy/AdvReac Type Severity Reaction Status Date / Time amitriptyline AdvReac Mild Headache Verified 07/24/24 11:36 Home Medications Medication Instructions Recorded Confirmed Type multivitamin 1 tablet PO DAILY 05/14/21 07/07/24 History metoprolol succinate 25 mg 25 mg PO DAILY #90 tabs 04/19/23 07/07/24 Rx tablet,extended release 24 hr lisinopril 40 mg tablet 20 mg PO DAILY #90 tabs 05/17/23 07/07/24 Rx cholecalciferol (vitamin D3) 1 tablet PO DAILY 09/13/23 07/07/24 History tamsulosin 0.4 mg capsule 0.4 mg PO QHS #90 caps 12/16/23 07/07/24 Rx cyanocobalamin (vitamin B-12) 1,000 mcg PO DAILY 03/29/24 07/07/24 History 1,000 mcg tablet levothyroxine 125 mcg tablet 125 mcg PO DAILY #90 tabs 04/10/24 07/07/24 Rx rivaroxaban 20 mg tablet (Xarelto) 20 mg PO QPM #30 tabs 04/21/24 07/07/24 Rx meclizine 25 mg tablet 25 mg PO TID PRN dizziness #270 05/01/24 07/07/24 Rx tabs amlodipine 10 mg tablet 10 mg PO DAILY #90 tabs 05/16/24 07/07/24 Rx atorvastatin 10 mg tablet 10 mg PO DAILY #90 tabs 05/16/24 07/07/24 Rx Patient hx anesthesia problems: none Family hx anesthesia problems: none Results Review: All pre-operative results and documents have been reviewed as part of the pre-operative evaluation. [facility] Past Medical History Medical History Abnormal EKG Acute bronchitis Acute pharyngitis Afib Arthritis, lumbar spine B12 deficiency Bilateral hip pain BMI 26.0-26.9,adult BMI 27.0-27.9,adult Buttock pain Claudication Cerumen impaction Dizziness Elevated fasting glucose Encounter to establish care Erectile dysfunction Frontal headache Hearing loss History of carotid stenosis carotid Doppler study 11/25/2023 with less than 50% stenosis bilaterally. Followed by vascular surgeon. HTN (hypertension) Hypothyroidism Lumbago Lumbago with sciatica Mixed hyperlipidemia Muscle strain Nocturia Peripheral arterial disease or to Doppler 06/24/2023 with ABNER 0.59 on the right and 0.54 on the left followed by vascular surgeon. Tinnitus Vertigo Surgical History Surgical History History of lumbar surgery Hx of cholecystectomy Family History Family History Sibling Cancer Sibling Diabetes mellitus Social History Social History Social History: Caffeine-tea daily Smoking packs per day: 3 Smoking cigarettes per day: 60.0 Years smoked: 47 Smoking pack-years: 141.00 Smoking status: Former smoker Tobacco type: cigarettes Second hand tobacco smoke exposure: Yes Smoking end date: 09/06/98 Alcohol intake: former Alcohol use details: QUIT 2004 RECOVERING ALCOHOLIC Substance use: unknown Substance use type: does not use Do You Feel Safe in your Home?: Yes Lack of Transportation: No Lack of Food: Never True Current Housing: I Have Housing Concerned About Future Housing: No Difficulty Paying Gas/Electric Bills: No Difficulty Paying for Meds: No Currently Unemployed: No Education: Master's Degree or Higher Difficulty w/ Childcare or Family Care: No Living arrangements: with family Additional living arrangements comments: with Occupation/Education: retired Gender identity (if verbalized by the patient): Male Spiritual care concerns: No Anes - Eval Final PreProcedure Day of Procedure 07/24/24 13:09 Patient weight: normal Heart: irregular rhythm Lungs: clear to auscultation Airway: Mallampati scale class II Neurological: alert and oriented Last oral intake: >/= 8 hours Emergent: no Anesthetic plan: proceed Anesthesia type and monitoring: general ETT and standard monitoring Results Review: All pre-operative results and documents have been reviewed as part of the pre-operative evaluation. Informed Consent: The patient's anesthetic plan and its attendant risks and benefits were discussed with the patient/family/POA. Questions were solicited and answers provided to the satisfaction of the patient/family/POA.
[2024-07-24] MEDS: ceFAZolin 2 GM/D5W 50 ML 2 GM/50 ML BAG IVPB (14:08)
[2024-07-24] MEDS: LIDOCAINE HCL 2% PF INJ 5 ML VIAL 10 ML INFILTRATE (14:25)
[2024-07-24] MEDS: BUPIVACAINE/EPINEPHRINE 0.5% 50 ML VIAL 10 ML INFILTRATE (14:26)
[2024-07-24] MEDS: oxyCODONE HCL (*CRX) 5 MG TAB IR PO (17:08)
== END 2024-07-24 17:10 | disposition home or self-care (01) ==
PROVIDERS: PCP Nurse Practitioner Family; Visit Provider Anesthesiology Pain Medicine
PROC: (CPT 0275T; principal; 2024-07-24 12:15)
DX: M48.062 Spinal stenosis, lumbar region with neurogenic claudication (principal); Z00.6 Encounter for examination for normal comparison and control in clinical research program; G89.29 Other chronic pain; I10 Essential (primary) hypertension; E78.2 Mixed hyperlipidemia; E03.9 Hypothyroidism, unspecified; I48.91 Unspecified atrial fibrillation; I73.9 Peripheral vascular disease, unspecified; Z87.891 Personal history of nicotine dependence; Z79.01 Long term (current) use of anticoagulants
CPT/HCPCS: 0275T; 99199; A9270; C1889; J0330; J0690; J1100; J2003; J2371; J2405; J2704; J3010; J7120

== ENCOUNTER 2024-09-15 09:30 | Outpatient (RCR) | payer MEDICARE, SELFPAY ==
--- NOTE | 2024-08-15 15:25 | OPREHPOC ---
Outpatient Therapy Plan of Care This is a Multidisciplinary Plan of Care that may contain components documented by all disciplines (PT, OT, and ST.) PT Problem 1 PT Problem #1 Knowledge Deficit PT Goal 1 Goal / Goal Update [place] with HEP Target Visit 4 PT Goal 2 Goal / Goal Update Report no pain greater than 4/10 for 2 consecutive weeks Target Visit 8 PT Problem 2 PT Problem #2 Impaired Range of Motion PT Goal 1 Goal / Goal Update 1. Demonstrate 40 degrees of R hip abduction to improve function gross joint mechanics of LE and lumbopelvic complex 2. Improve basim hamstring restriction to <-25 degrees to reduce lumbar strain with ADL and ambulation activity Target Visit 8 PT Goal 1 Goal / Goal Update Improve basim hip abduction strength to 4+/5 to improve lateral stability with gait and ADL performance Target Visit 8 PT Goal 2 Goal / Goal Update Patient will demonstrate 20%+ improvement in Oswestry score indicating gross subjective improvement Target Visit 8
--- NOTE | 2024-08-15 15:25 | PTOPEVAL1 ---
Assessment and note entered by Dustin Tran, PT Evaluation Information Assessment Status Evaluation Diagnosis M48.062 Lumbar spinal stenosis ICD-10 Condition Codes (PT) Pain in low back M54.50 Onset 07/24/24 Subjective Information Reports that at this point in recovery he feels he may be a little worse. He has history of balance issues and reports that he has had falls in the past. His currently had a total hip arthroplasty so she is not able to help much. His current pain is mostly in his glutes and is greater on his right side. Was told that he should see improvement for up to 6 months. Does not feel that he can be on his feet for more than about 20 minutes at a time with out significant increase in pain. Feels he is sleeping better. He has been taking Ibuprophen at night to help with sleeping. Patient is a left side sleeper. Reported Pain Level Pain Score 9: Self Report Assessment PT Clinical Summary Patient presents with signs and symptoms consistent with lumbar radiculopathy following MIDLD procedure. Patient has limitation in right hip mobility and strength compounding lumbar stress with ambulation and ADL performance. Patient will benefit forms killed therapy to address deficits and improve gross function of affected hip. This should translate into improved gait pattern and mobility. Plan of Care Interventions Gait Training,Hot Pack/Cold Pack,Manual Therapy, Neuro Re-education,Therapeutic Activities, Therapeutic Exercise PT Services Indicated Yes Treatment Frequency and 2x/week for 8 visits Duration These treatments will address the objective and functional deficits as defined above. The patient will be advanced safely and appropriately in order for the patient to progress towards his/her prior level of function. Additional exercises will be introduced and as well as a comprehensive home exercise program upon discharge, if needed, ?to ensure carryover of functional gains achieved in the clinic. This treatment plan has been reviewed and agreement upon by the patient.
--- NOTE | 2024-09-12 08:11 | PCPTNOTE ---
Patient called & cancelled scheduled appointment this date.
--- NOTE | 2024-09-15 10:39 | OPREHPOC ---
Outpatient Therapy Plan of Care This is a Multidisciplinary Plan of Care that may contain components documented by all disciplines (PT, OT, and ST.) PT Problem 1 PT Problem #1 Knowledge Deficit PT Goal 1 Goal / Goal Update [place] with HEP Target Visit 4 Progress Met PT Goal 2 Goal / Goal Update Report no pain greater than 4/10 for 2 consecutive weeks Target Visit 8 Progress Partially Met PT Problem 2 PT Problem #2 Impaired Range of Motion PT Goal 1 Goal / Goal Update 1. Demonstrate 40 degrees of R hip abduction to improve function gross joint mechanics of LE and lumbopelvic complex 2. Improve basim hamstring restriction to <-25 degrees to reduce lumbar strain with ADL and ambulation activity Target Visit 8 Progress Partially Met PT Goal 1 Goal / Goal Update Improve basim hip abduction strength to 4+/5 to improve lateral stability with gait and ADL performance Target Visit 8 Progress Partially Met PT Goal 2 Goal / Goal Update Patient will demonstrate 20%+ improvement in Oswestry score indicating gross subjective improvement Target Visit 8 Progress Partially Met
--- NOTE | 2024-09-15 10:41 | PTOPPROG ---
Assessment and note entered by Dustin Tran, PT Evaluation Information Assessment Status Progress Diagnosis M48.062 Lumbar spinal stenosis ICD-10 Condition Codes (PT) Pain in low back M54.50 Onset 07/24/24 Subjective Information Reports that overall he is doing better, but still sore and limited. Feels that it is going to be a long recovery. Still gets some pulling in posterior hips but has been walking more and less reliant on the cane at this time. Would like to continue with skilled therapy. Assessment PT Clinical Summary Patient has seen progress in hip ROM and strength. Continues to struggle with gait greater than 300' leading to increased back pain and fatigue. Will continue to benefit form skilled therapy to address deficits and improve mobility and strength of hips for improved back stability. Plan of Care Interventions Gait Training,Hot Pack/Cold Pack,Manual Therapy, Neuro Re-education,Therapeutic Activities, Therapeutic Exercise PT Services Indicated Yes Treatment Frequency and 1-2x/week for 8 visits Duration These treatments will address the objective and functional deficits as defined above. The patient will be advanced safely and appropriately in order for the patient to progress towards his/her prior level of function. Additional exercises will be introduced and as well as a comprehensive home exercise program upon discharge, if needed, ?to ensure carryover of functional gains achieved in the clinic. This treatment plan has been reviewed and agreement upon by the patient.
== END 2024-11-13 23:59 | disposition home or self-care (01) ==
LOC: ANHGOSHPT 09:30
PROVIDERS: PCP Nurse Practitioner Family; Visit Provider Anesthesiology Pain Medicine
DX: M48.062 Spinal stenosis, lumbar region with neurogenic claudication (principal); M47.817 Spondylosis without myelopathy or radiculopathy, lumbosacral region
CPT/HCPCS: 97014; 97110; 97140; 97161; G0283